=== PATIENT | female | born 1950 | race Caucasian/White ===

== ENCOUNTER 2017-05-03 00:50 | Observation (INO) | payer MEDICARE ==
[~2017-05-03] VITALS: Ht 167.6 cm; Wt 93.2 kg
[~2017-05-03 00:50] MED LIST: AVAPRO150 MG PO; COQ-10100 MG PO; COUMADIN5 MG OR; COUMADIN5 MG PO; LEXAPRO20 MG OR; METOPROLOL SUCC25 MG PO; NAPROSYN500 MG OR; NIACIN TR500 M1 PO; NO MEDS; PERSANTINE25 MG OR; PERSANTINE25 MG PO; PLAVIX75 MG OR; PLAVIX75 MG PO; PRILOSEC20 MG/CAP PO; SEROQUEL XR50 MG PO; SIMVASTATIN20 MG PO; SINGULAIR OR; TOPROL XL25 MG OR; VITAMIN D31000 UNI1 PO; WELLBUTRIN100 MG OR; ZOCOR40 MG OR
[2017-05-03 01:37] LABS: HEMATOCRIT 36.6 % (37.0-47.0); HEMOGLOBIN 11.6 g/dl (12.0-16.0); IMMATURE GRANULOCYTES 0.3 % (0.0-1.0); MEAN CELL VOLUME 93.6 fL CALC (80.0-100.0); MEAN CORPUSCULAR HGB 29.7 pG CALC (26.0-32.0); MEAN CORPUSCULAR HGB CONC 31.7 g/L CALC (32.0-36.0); NEUT# 5.78 thou/uL (2.00-7.15); RED BLOOD COUNT 3.91 mill/uL (4.20-5.60); RED CELL DISTRI WIDTH 14.1 % (11.5-15.5)
[2017-05-03 01:51] LABS: ALBUMIN 3.7 g/dL (3.2-5.0); ALKALINE PHOSPHATASE 94 u/l (38-126); ANION GAP 15 (6-22 (CALC)); BILIRUBIN, TOTAL 0.8 mg/dL (0.0-1.4); BUN 15 mg/dL (8-23); BUN/CREATININE RATIO 14 (12-20 (CALC)); CALCIUM 9.4 mg/dL (8.4-10.2); CARBON DIOXIDE 25 mmol/l (22-30); CHLORIDE 107 mmol/l (95-108); GFR 55 ML/MIN (>=60 (CALC)); GFR FOR AFR.AMER. > 60 ML/MIN (>=60 (CALC)); GLUCOSE 130 mg/dL (82-115); POTASSIUM 4.6 mmol/l (3.5-5.1); SGOT/AST 22 u/l (9-36); SGPT/ALT 29 u/l (11-66); SODIUM 142 mmol/l (137-146)
[2017-05-03 01:54] LABS: INTERNATIONAL NORMALIZED RATIO 2.1 RATIO (0.7-1.3); PROTHROMBIN TIME 24.1 SECONDS (9.0-12.5)
[2017-05-03 02:04] LABS: MYOGLOBIN 24 ng/mL (0 - 62)
[2017-05-03 03:25] VITALS: BP 126/74
[2017-05-03 05:24] LABS: MAGNESIUM 1.9 mg/dL (1.6-2.3)
[2017-05-03 08:25] VITALS: BP 138/69
[2017-05-03 09:55] LABS: URINE BILIRUBIN - DIPSTICK NEGATIVE (NEGATIVE); URINE BLOOD DIPSTICK NEGATIVE (NEGATIVE); URINE CLARITY CLEAR; URINE COLOR YELLOW; URINE GLUCOSE - DIPSTICK NEGATIVE (NEGATIVE); URINE KETONE NEGATIVE (NEGATIVE); URINE LEUK ESTERASE TRACE (NEGATIVE); URINE NITRITE - DIPSTICK NEGATIVE (Negative); URINE PROTEIN - DIPSTICK NEGATIVE (NEG-TRACE); URINE UROBILINOGEN - DIPSTICK 0.2 E.U./dL (0.2)
[2017-05-03 09:58] LABS: BARBITURATES NEGATIVE (NEGATIVE); COCAINE NEGATIVE (NEGATIVE); METHADONE NEGATIVE (NEGATIVE); OXCYCODONE NEGATIVE (NEGATIVE); TETRAHYDROCANNABIONOL POSITIVE (NEGATIVE); TRICYLIC ANTIDEPRESSANTS NEGATIVE (NEGATIVE)
[2017-05-03 11:30] VITALS: BP 126/77
== END 2017-05-03 14:03 | disposition home or self-care (01) ==
LOC: ED 00:50 → ED-I 01:10 → ED 01:10 → ED-I 02:00 → ED 02:51 → MS2 02:52
PROVIDERS: Emergency Medicine; ADMIT Internal Medicine; ATTEND Internal Medicine
DX: R55 Syncope and collapse (principal); I95.9 Hypotension, unspecified; R94.6 Abnormal results of thyroid function studies; D68.59 Other primary thrombophilia; I10 Essential (primary) hypertension; E78.5 Hyperlipidemia, unspecified; F32.9 Major depressive disorder, single episode, unspecified; S80.12XD Contusion of left lower leg, subsequent encounter; W19.XXXD Unspecified fall, subsequent encounter; Z86.718 Personal history of other venous thrombosis and embolism; Z79.01 Long term (current) use of anticoagulants; Z79.02 Long term (current) use of antithrombotics/antiplatelets; R94.31 Abnormal electrocardiogram [ECG] [EKG]

== ENCOUNTER → 2018-09-27 | Outpatient (REF) | payer MEDICARE ==
[2018-09-27 17:07] LABS: INTERNATIONAL NORMALIZED RATIO 2.5 RATIO (0.7-1.3); PROTHROMBIN TIME 26.1 SECONDS (9.0-12.5)
== END | disposition home or self-care (01) ==
LOC: LAB 15:47
PROVIDERS: ATTEND Internal Medicine Cardiovascular Disease
DX: I82.409 Acute embolism and thrombosis of unspecified deep veins of unspecified lower extremity (principal); Z79.01 Long term (current) use of anticoagulants

== ENCOUNTER 2020-07-06 09:39 | Day surgery (SDC) | payer MEDICARE ==
[~2020-07-06] VITALS: Ht 162.6 cm; Wt 81.2 kg
[~2020-07-06 09:39] MED LIST changes: +METOPROLOL SUCC50 MG PO; +ZOCOR20 M1 PO
[2020-07-06 10:58] LABS: INTERNATIONAL NORMALIZED RATIO 1.2 RATIO (0.7-1.3); PROTHROMBIN TIME 11.6 SECONDS (9.0-12.5)
[2020-07-06 12:15] VITALS: BP 154/86
== END 2020-07-06 12:30 | disposition home or self-care (01) ==
LOC: ENDO 09:39 → ORM 14:30 → ENDO 14:30
PROVIDERS: ATTEND Internal Medicine Gastroenterology
PROC: 0D758ZZ Dilation of Esophagus, Via Natural or Artificial Opening Endoscopic (ICD-10-PCS; principal; 2020-07-06)
PROC: 0DB98ZX Excision of Duodenum, Via Natural or Artificial Opening Endoscopic, Diagnostic (ICD-10-PCS; 2020-07-06)
PROC: 0DB78ZX Excision of Stomach, Pylorus, Via Natural or Artificial Opening Endoscopic, Diagnostic (ICD-10-PCS; 2020-07-06)
PROC: 0DBK8ZX Excision of Ascending Colon, Via Natural or Artificial Opening Endoscopic, Diagnostic (ICD-10-PCS; 2020-07-06)
PROC: 0DBL8ZX Excision of Transverse Colon, Via Natural or Artificial Opening Endoscopic, Diagnostic (ICD-10-PCS; 2020-07-06)
PROC: 0DBE8ZX Excision of Large Intestine, Via Natural or Artificial Opening Endoscopic, Diagnostic (ICD-10-PCS; 2020-07-06)
DX: K22.4 Dyskinesia of esophagus (principal); Q39.8 Other congenital malformations of esophagus; K44.9 Diaphragmatic hernia without obstruction or gangrene; K29.70 Gastritis, unspecified, without bleeding; K31.7 Polyp of stomach and duodenum; D12.3 Benign neoplasm of transverse colon; D12.2 Benign neoplasm of ascending colon; K57.30 Diverticulosis of large intestine without perforation or abscess without bleeding; K64.8 Other hemorrhoids; K64.4 Residual hemorrhoidal skin tags; I10 Essential (primary) hypertension; F32.9 Major depressive disorder, single episode, unspecified; Z86.718 Personal history of other venous thrombosis and embolism; Z79.01 Long term (current) use of anticoagulants; Z20.828 Contact with and (suspected) exposure to other viral communicable diseases

== ENCOUNTER 2020-07-18 16:35 | Emergency (ER) | payer MEDICARE ==
[~2020-07-18] VITALS: Ht 162.6 cm; Wt 81.0 kg
[2020-07-18 18:39] LABS: HEMATOCRIT 37.9 % (37.0-47.0); IMMATURE GRANULOCYTES 0.3 % (0.0-5.0); MEAN CORPUSCULAR HGB 22.5 pG CALC (26.0-32.0); NEUT# 5.34 thou/uL (2.00-7.15); RED BLOOD COUNT 4.88 mill/uL (4.20-5.60); RED CELL DISTRI WIDTH 17.1 % (11.5-15.5)
[2020-07-18 18:40] LABS: MEAN CELL VOLUME 77.7 fL CALC (80.0-100.0)
[2020-07-18 19:00] LABS: ANION GAP 13 (6-22 (CALC)); BUN 11 mg/dL (8-23); BUN/CREATININE RATIO 13 (12-20 (CALC)); CARBON DIOXIDE 26 mmol/l (22-30); CHLORIDE 106 mmol/l (95-108); CREATININE 0.8 mg/dL (0.5-1.0); GFR > 60 ML/MIN (>=60 (CALC)); GFR FOR AFR.AMER. > 60 ML/MIN (>=60 (CALC)); POTASSIUM 3.9 mmol/l (3.5-5.1); SODIUM 142 mmol/l (137-146)
[2020-07-18 19:07] LABS: INTERNATIONAL NORMALIZED RATIO 2.1 RATIO (0.7-1.3); PROTHROMBIN TIME 20.1 SECONDS (9.0-12.5)
[2020-07-18 19:55] VITALS: BP 198/89
== END 2020-07-18 20:11 | disposition home or self-care (01) ==
LOC: ED 16:35
PROVIDERS: Student in an Organized Health Care Education/Training Program
DX: M79.605 Pain in left leg (principal); I10 Essential (primary) hypertension; E78.5 Hyperlipidemia, unspecified; Z86.718 Personal history of other venous thrombosis and embolism; Z79.01 Long term (current) use of anticoagulants

== ENCOUNTER 2020-07-19 15:17 | Observation (INO) | payer MEDICARE ==
[~2020-07-19] VITALS: Ht 162.6 cm; Wt 83.0 kg
--- NOTE | 2020-07-19 15:20 | NUR ---
PT AMBULATED TO ROOM FOR BEDSIDE TRIAGE. WHEELCHAIR OFFERED AND DECLINED BY PT.
--- NOTE | 2020-07-19 15:58 | NUR ---
COVID SWAB COLLECTED, ISOLATION PRECAUTIONS INITIATED.
[2020-07-19 16:40] LABS: HEMATOCRIT 35.1 % (37.0-47.0); HEMOGLOBIN 10.2 g/dl (12.0-16.0); IMMATURE GRANULOCYTES 0.2 % (0.0-5.0); MEAN CELL VOLUME 78.5 fL CALC (80.0-100.0); MEAN CORPUSCULAR HGB 22.8 pG CALC (26.0-32.0); MEAN CORPUSCULAR HGB CONC 29.1 g/dL CAL (32.0-36.0); NEUT# 4.23 thou/uL (2.00-7.15); RED BLOOD COUNT 4.47 mill/uL (4.20-5.60); RED CELL DISTRI WIDTH 17.1 % (11.5-15.5)
--- NOTE | 2020-07-19 16:51 | NUR ---
PT RESTING. NO DISTRESS NOTED. NO COMPLAINTS AT THIS TIME. STABLE ON MONITOR. PERSONAL ITEMS AND CALL LIGHT WITHIN REACH.
[2020-07-19 16:58] LABS: ALBUMIN 4.1 g/dL (3.2-5.0); ALKALINE PHOSPHATASE 70 u/l (38-126); ANION GAP 14 (6-22 (CALC)); BILIRUBIN, TOTAL 0.5 mg/dL (0.0-1.4); BUN 10 mg/dL (8-23); BUN/CREATININE RATIO 12 (12-20 (CALC)); CARBON DIOXIDE 23 mmol/l (22-30); CHLORIDE 107 mmol/l (95-108); CREATININE 0.8 mg/dL (0.5-1.0); GFR > 60 ML/MIN (>=60 (CALC)); GFR FOR AFR.AMER. > 60 ML/MIN (>=60 (CALC)); POTASSIUM 3.7 mmol/l (3.5-5.1); SGOT/AST 23 u/l (9-36); SODIUM 141 mmol/l (137-146); TOTAL PROTEIN 6.6 g/dL (6.3-8.2)
[2020-07-19 17:00] LABS: ACT PARTIAL THROMBO TIME 29.7 SECONDS (20.0-32.5); INTERNATIONAL NORMALIZED RATIO 2.5 RATIO (0.7-1.3); PROTHROMBIN TIME 24.3 SECONDS (9.0-12.5)
--- NOTE | 2020-07-19 17:15 | NUR ---
WARM BLANKET PROVIDED FOR PT. NO OTHER NEEDS AT THIS TIME.
--- NOTE | 2020-07-19 17:47 | NUR ---
ATTEMPTED TO CALL REPORT TO [facility]. NURSE NOT AVAILABLE.
--- NOTE | 2020-07-19 18:19 | NUR ---
[facility]
--- NOTE | 2020-07-19 18:31 | NUR ---
PT ARRIVED TO MS2 VIA WHEELCHAIR ACCOMPANIED BY ER NURSE,PT ALERT AND ORIENTED X3, ORIENTED PT TO ROOM AND CALL LIGHT, DISCUSSED POC, PT ASKING ABOUT HEPARIN GTT AND HEATING PAD. ADMISSION ASSESSMENT COMPLETED, WILL DISCUSS PT CONCERNS WITH MD. CALL LIGHT IN REACH,CONTINUE TO MONITOR.
--- NOTE | 2020-07-19 18:31 | NUR ---
PT ARRIVED TO THE FLOOR, VIA WC, ACCOMPANIED BY ED STAFF. PT AMBULATED FROM WC TO BED. GATE STEADY. PT ORIENTED TO ROOM AND CALL GAMBOA SYSTEM. SAFETY PRECAUTIONS IN PLACE. WILL CONTINUE TO MONITOR.
[2020-07-19 19:20] VITALS: BP 157/76
--- NOTE | 2020-07-19 21:45 | NUR ---
PT RESTING IN BED, DISCUSSED KPAD, PT AGREES. DISCUSSED MD PLAN TO CONTINUE WITH LOVENOX AT THIS TIME. PT VERBALIZED UNDERSTANDING. CALL LIGHT IN REACH,CONTINUE TO MONITOR.
--- NOTE | 2020-07-20 | NUR ---
PT RESTING IN BED WITH LLE ELEVATED, PT ON HER PHONE, VOICES NO NEEDS OR COMPLAINTS AT THIS TIME. CALL LIGHT IN REACH,CONTINUE TO MONITOR.
[2020-07-20 03:38] VITALS: BP 120/72
--- NOTE | 2020-07-20 04:00 | NUR ---
PT RESTING IN BED, VITALS OBTAINED, PT VOICES NO NEEDS OR COMPLAINTS AT THIS TIME, CALL LIGHT IN REACH,CONTINUE TO MONITOR.
[2020-07-20 06:48] LABS: HEMATOCRIT 34.3 % (37.0-47.0); MEAN CELL VOLUME 77.4 fL CALC (80.0-100.0); MEAN CORPUSCULAR HGB 22.6 pG CALC (26.0-32.0); MEAN CORPUSCULAR HGB CONC 29.2 g/dL CAL (32.0-36.0); RED BLOOD COUNT 4.43 mill/uL (4.20-5.60)
[2020-07-20 07:23] LABS: ANION GAP 11 (6-22 (CALC)); BUN 7 mg/dL (8-23); BUN/CREATININE RATIO 9 (12-20 (CALC)); CALCULATED LDLCHOLESTEROL 64 mg/dL (62-129 (CALC)); CARBON DIOXIDE 24 mmol/l (22-30); CHLORIDE 109 mmol/l (95-108); CHOLESTEROL HDL RATIO 3.3 (<4.4 (CALC)); CREATININE 0.7 mg/dL (0.5-1.0); GFR > 60 ML/MIN (>=60 (CALC)); GFR FOR AFR.AMER. > 60 ML/MIN (>=60 (CALC)); HDL CHOLESTEROL 38 mg/dL (>=40); MAGNESIUM 1.8 mg/dL (1.6-2.3); POTASSIUM 3.5 mmol/l (3.5-5.1); SODIUM 140 mmol/l (137-146); TOTAL CHOLESTEROL 124 mg/dl (0-199); TOTAL TRIGLYCERIDES 109 mg/dl (30-149); VLDL CHOLESTROL 22 mg/dl (0-48 (CALC))
[2020-07-20 08:12] VITALS: BP 160/85
--- NOTE | 2020-07-20 08:12 | NUR ---
PT LAYING IN BED. A&O X3. NO DISTRESS NOTED. LLE SLIGHTLY ELEVATED WITH K PAD IN PLACE. PT REPORTS TO BE FEELING BETTER THIS MORNING. PT REQUESTED TO HAVE MORNING MEDICATIONS MOVED TO 1500, RAYMUNDO NOTIFIED. NO OTHER NEEDS AT THIS TIME. ASSESSMENT COMPLETED. DISCUSSED POC. CALL LIGHT IN REACH. CONTINUE TO MONITOR.
--- NOTE | 2020-07-20 08:33 | NUR ---
DR SANCHEZ AND Chela DORSEY APPAREL MACHINERY INSTRUCTOR AT BEDSIDE DISCUSSING POC
--- NOTE | 2020-07-20 11:56 | NUR ---
PT SITTING IN BED EATING LUNCH. NO NEEDS AT THIS TIME. PT UPDATED ON D/C PLANS. PT AGREEABLE. CALL LIGHT IN REACH. CONTINUE TO MONITOR.
--- NOTE | 2020-07-20 13:37 | NUR ---
PT note Patient is screened for PT intervention and no needs are identified at this time
[2020-07-20] MEDS ORDERED: ENOXAPARIN80 MG/0.1 SC (14:11)
[2020-07-20 14:21] LABS: INTERNATIONAL NORMALIZED RATIO 2.9 RATIO (0.7-1.3); PROTHROMBIN TIME 27.8 SECONDS (9.0-12.5)
--- NOTE | 2020-07-20 14:45 | NUR ---
Brian SEXTON AT BEDSIDE DISCUSSING MEDICATION PLAN ALONG WITH PROVIDING EDUCATION ON COUMADIN THERAPY. PT UPDATED ON D/C PLAN. IV VENOFER TO BE INFUSED, 4 HR SITE. PT AGREEABLE TO PLAN. CALL LIGHT IN REACH. CONTINUE TO MONITOR.
[2020-07-20 15:40] VITALS: BP 134/73
--- NOTE | 2020-07-20 19:30 | NUR ---
1929-RECEIVED REPORT FROM SEVERIANO MICHEL. PT IS BEING DISCHARGED SOON HER IRON INFUSION IS COMPLETE. PT ASSESSMENT UNREMARKABLE. NO S/S OF DISTRESS. PT DENIES PAIN AND IS READY TO GO HOME. BED LOW AND LOCKED. CALL LIGHT AND PHONE WITHIN REACH. PT STABLE. WILL CONTINUE TO MONITOR.
[2020-07-20 20:00] VITALS: BP 145/81
--- NOTE | 2020-07-20 20:45 | NUR ---
2044-PT DISCHARGE COMPLETE. IV ACCESS REMOVED. TIP INTACT, PRESSURE APPLIED TO REMOVAL SITE FOR 5 MINUTES WITH PRESSURE APPLIED, PT TOLERATED WELL. PRESSURE DRESSING APPLIED AND INSTRUCTED PT TO KEEP DRESSING IN PLACE FOR 2 HOURS. PT VERBALIZED UNDERSTANDING. DISCHARGE INSTRUCTIONS PROVIDED AND PATIENT VERBALIZED UNDERSTANDING. PT ESCORTED BY WHEELCHAIR TO HER VEHICLE PARKED OUTSIDE ER AND WAS ASSISTED SAFELY IN THE VEHICLE. PT LEFT MED-SURG UNIT AT 2044. PT ASKED FOR ANY LABS AND DOCUMENTATION TO BE FAXED TO HER PCP DR. WRIGHT AT .
== END 2020-07-20 20:45 | disposition home or self-care (01) ==
LOC: ED 15:17 → MS2 16:02
PROVIDERS: Nurse Practitioner; ADMIT Internal Medicine; ATTEND Internal Medicine
DX: I82.412 Acute embolism and thrombosis of left femoral vein (principal); I82.432 Acute embolism and thrombosis of left popliteal vein; I10 Essential (primary) hypertension; E78.5 Hyperlipidemia, unspecified; Z86.718 Personal history of other venous thrombosis and embolism; Z79.01 Long term (current) use of anticoagulants; Z20.828 Contact with and (suspected) exposure to other viral communicable diseases
CPT/HCPCS: J1650; J1756

== ENCOUNTER 2021-01-24 16:49 | Inpatient (IN) | payer MEDICARE ==
[~2021-01-24] VITALS: Ht 165.1 cm; Wt 85.0 kg
[~2021-01-24 16:49] MED LIST changes: +ENOXAPARIN80 MG/0.1 SC
--- NOTE | 2021-01-24 16:50 | NUR ---
PATIENT AMBULATED TO ROOM WITH STEADY GAIT AND PHYSICIAN NOTIFIED OF PATIENT STATUS
--- NOTE | 2021-01-24 17:30 | NUR ---
PLAN OF CARE DISCUSSED WITH PT AND DENIES ANY FURTHER QUESTIONS
[2021-01-24 17:34] LABS: IMMATURE GRANULOCYTES 0.3 % (0.0-5.0); MEAN CORPUSCULAR HGB 29.1 pG CALC (26.0-32.0); MEAN CORPUSCULAR HGB CONC 32.3 g/dL CAL (32.0-36.0); NEUT# 5.82 thou/uL (2.00-7.15); RED BLOOD COUNT 5.15 mill/uL (4.20-5.60); RED CELL DISTRI WIDTH 12.8 % (11.5-15.5)
[2021-01-24 17:40] LABS: HEMATOCRIT 46.5 % (37.0-47.0); MEAN CELL VOLUME 90.3 fL CALC (80.0-100.0)
[2021-01-24 17:47] LABS: ALBUMIN 4.4 g/dL (3.2-5.0); ALKALINE PHOSPHATASE 99 u/l (38-126); AMYLASE 90 u/l (30-110); BUN 16 mg/dL (8-23); BUN/CREATININE RATIO 17 (12-20 (CALC)); CHLORIDE 102 mmol/l (95-108); CREATININE 0.9 mg/dL (0.5-1.0); GFR > 60 ML/MIN (>=60 (CALC)); GFR FOR AFR.AMER. > 60 ML/MIN (>=60 (CALC)); LIPASE 110 u/l (23-300); SGOT/AST 28 u/l (9-36); SODIUM 136 mmol/l (137-146); TOTAL PROTEIN 7.6 g/dL (6.3-8.2)
[2021-01-24 17:49] LABS: ANION GAP 15 (6-22 (CALC)); BILIRUBIN, TOTAL 1.1 mg/dL (0.0-1.4); CARBON DIOXIDE 23 mmol/l (22-30); POTASSIUM 3.7 mmol/l (3.5-5.1)
--- NOTE | 2021-01-24 18:14 | NUR ---
PT RETURNED FROM RADIOLOGY, DENIES ANY NEEDS AT THIS TIME
--- NOTE | 2021-01-24 18:33 | NUR ---
GAVE REPORT TO JOHN
[2021-01-24 18:48] LABS: INTERNATIONAL NORMALIZED RATIO 2.6 RATIO (0.7-1.3); PROTHROMBIN TIME 26.2 SECONDS (9.0-12.5)
[2021-01-24 18:56] LABS: URINE BILIRUBIN - DIPSTICK NEGATIVE (NEGATIVE); URINE BLOOD DIPSTICK LARGE (NEGATIVE); URINE COLOR YELLOW; URINE GLUCOSE - DIPSTICK NEGATIVE (NEGATIVE); URINE KETONE NEGATIVE (NEGATIVE); URINE PH 6.5 (4.5-8.0); URINE PROTEIN - DIPSTICK NEGATIVE (NEG-TRACE); URINE UROBILINOGEN - DIPSTICK 0.2 E.U./dL (0.2)
[2021-01-24 18:57] LABS: URINE LEUK ESTERASE SMALL (NEGATIVE); URINE NITRITE - DIPSTICK NEGATIVE (Negative)
[2021-01-24 19:05] LABS: URINE BACTERIA MANY hpf; URINE SQUAMOUS EPITHELIAL CELL FEW EPI/hpf (0-FEW); URINE WBC 20-50 WBC/hpf (0-5)
--- NOTE | 2021-01-24 20:00 | NUR ---
RESTING QUIETLY AWAITING DISPO.
--- NOTE | 2021-01-24 21:36 | NUR ---
ADMISSION ASSESSMENT COMPLETED IN ED. PT TRANSPORT VIA WHEELCHAIR. ALERT AND ORIENTED X4. NO APPARENT DISTRESS NOTED. RESPIRATIONS EVEN AND UNLABORED. PT AMBULATORY FROM WHEELCHAIR TO BED. BUSINESS MACHINES TEACHER IN PLACE. IV SITE APPEARS HEALTHY. IVF INFUSING WITHOUT DIFFICULTY. DISCUSSED POC AND NPO AFTER MIDNIGHT. PT VERBALIZED UNDERSTANDING. ORIENTED TO ROOM AND CALL LIGHT SYSTEM. PT DENIES ANY CURRENT WANTS OR NEEDS. CALL LIGHT WITHIN REACH. WILL CONTINUE TO MONITOR.
--- NOTE | 2021-01-24 21:36 | NUR ---
Admission Note Report Given to: THUY BHANDARI Transported by: X Wheelchair Stretcher Transported with: X Nurse Transporter X Patent IV O2 X Watershed Coordinator Location: ICU X MS2
[2021-01-24 21:37] VITALS: BP 163/86
--- NOTE | 2021-01-24 21:57 | NUR ---
PT REQUESTING TORADOL FOR PAIN PT PREFERS NOT TO TAKE DILAUDID. RADIO SCRIPT WRITER PHYSICIAN NOTIFIED. ORDERS RECEIVED FOR TORADOL 30MG Q6H PRN. WILL MEDICATE ONCE PROFILED BY PHARMACY.
--- NOTE | 2021-01-24 22:29 | NUR ---
PER PHARMACY RECOMMENDATION PT OVER THE AGE OF 63 THE RECOMMENDED DOSE IS TORADOL 15MG INSTEAD OF 30MG. ORDER PACKER OR PACKAGER PHYSICIAN NOTIFIED, NEW ORDERS RECEIVED.
[2021-01-24 23:47] VITALS: BP 119/60
[2021-01-25] VITALS (11 sets, daily range): BP systolic 104–142; BP diastolic 53–78
--- NOTE | 2021-01-25 00:34 | NUR ---
PT RESTING IN BED WITH EYES CLOSED. NO APPARENT DISTRESS NOTED. RESPIRATIONS EVEN AND UNLABORED. BULK LOADER IN PLACE. IVF INFUSING WITHOUT DIFFICULTY. CALL LIGHT WITHIN REACH. WILL CONTINUE TO MONITOR.
--- NOTE | 2021-01-25 03:43 | NUR ---
PT REQUEST TYLENOL FOR HEADACHE 03/12. MEDICATED AT THIS TIME WITH SMALL SIP OF WATER. PT REFUSED DILAUDID. NO OTHER CURRENT WANTS OR NEEDS. NO APPARENT DISTRESS NOTED. CALL LIGHT WITHIN REACH. WILL CONTINUE TO MONITOR.
--- NOTE | 2021-01-25 07:00 | NUR ---
RECIEVED REPORT MANUELITO HUANG LPN
[2021-01-25 07:17] LABS: MEAN CELL VOLUME 90.2 fL CALC (80.0-100.0); MEAN CORPUSCULAR HGB 29.4 pG CALC (26.0-32.0); MEAN CORPUSCULAR HGB CONC 32.6 g/dL CAL (32.0-36.0); RED BLOOD COUNT 4.39 mill/uL (4.20-5.60); RED CELL DISTRI WIDTH 13.1 % (11.5-15.5)
[2021-01-25 07:20] LABS: HEMATOCRIT 39.6 % (37.0-47.0); HEMOGLOBIN 12.9 g/dl (12.0-16.0)
--- NOTE | 2021-01-25 07:45 | NUR ---
DR HAIR AT BEDSIDE
[2021-01-25 07:46] LABS: CREATININE 1.1 mg/dL (0.5-1.0); MAGNESIUM 1.7 mg/dL (1.6-2.3)
[2021-01-25 07:47] LABS: POTASSIUM 4.7 mmol/l (3.5-5.1)
--- NOTE | 2021-01-25 07:49 | NUR ---
PT RESTING IN SEMI FOWLERS POSITION. PT IS A/O X3. ASSESSMWNT AND VITALS COMPLETED. BP 104/60, HR 62, O2 96% ON ROOM AIR. RESPIRATIONS ARE EVEN AND UNLABORED WITH NO DISTRESS NOTED. LUNG SOUNDS CLEAR. HEART RHYTHM NORMAL WITH TELE IN PLACE. BOWEL SOUNDS ACTIVE. RADIAL AND PEDAL PULSES STRONG. #20G LAC INFUSING WITH IVF PER ORDER, SITE REMAINS HEALTHY AND PATENT. PT STATES P[AIN IN NOW 08/12 GENERALIZED. SKIN INTACT. 1+ EDEMA NOTED. OBTAINED CONSENT AT THIS TIME. PT VOICED NO QUESTIONS. NPO STATUS REMAISN AT THIS TIME. STENT PLACEMENT SCHEDULED AT 1100 PER OR. PT INFORMED. ALL SAFETY PRECAUTIONS ARE IN PLACE WITH CALL LIGHT IN REACH. WILL CONTINUE TO MONITOR.
--- NOTE | 2021-01-25 09:30 | NUR ---
DR NAGY CONTACT.PER DR NAGY, GIVEN BLOOD THINNERS. MEDICATION ADMINISTERED. PT TOLERATED WELL.
--- NOTE | 2021-01-25 10:03 | NUR ---
APPROVAL FOR SON TO COME TO FLOOR TO VISIT AND STAY DURING SURGERY PER NICOLASA LANCASTER.SON AT BEDSIDE
--- NOTE | 2021-01-25 11:21 | NUR ---
PT TRANSPORTED TO OR VIA STRETCHER IN STABLE CONDITION ACCOMPAINED BY OR STAFF. SON TO STAY IN ROOM.
--- NOTE | 2021-01-25 14:06 | NUR ---
PT ARRIVED BACK TO [facility] ROOM 269 VIA STRETCHER IN [facility]. PT IS A/O X3 AND VITALS COMPLETED.BP 132/61, HR 62, O2 96% ON ROOM AIR. RESPIRATIONS ARE EVEN AND UNLABORED.TELE IN PLACE. #20G LAC INFUSING WITH IVF PER ORDER, SITE REMAINS HEALTHY AND PATENT. PT AMBULATED TO BATHROOM WITH X1 ASSIST. 200 BLOODY URINE NOTED. DOT ETCHER APPRENTICE INFORMED BY OR NURSE THAT STENT WOULD HAVE TO BE REMOVED BACK IN OR IN THE NEXT 2 WEEKS. PT NOTIFIED. PT VERBALIZED UNDERSTANDING. PT REQUEST FOR MASH POTATOES AND TEA, DIETARY CALLED.PT COMPLAINS OF 4/10 HEAD AND PELVIC PAIN, TORADOL ADMINISTERED. PT TOLERATED WELL. PT DENIES OF ANY OTHER NEEDS.ALL SAFETY PRECAUTIONS ARE IN PLACE WITH CALL LIGHT IN REACH.WILL CONTINUE TO MONITOR.
--- NOTE | 2021-01-25 16:35 | NUR ---
PT RESTING IN SEMI FOWLERS POSITION WATCHING TV.REPSIRATIONS ARE EVEN AND UNLABORED WITH NO DISTRESS NOTED. #20G LAC INFUSING WITH IVF PER ORDER, SITE REMAINS HEALTHY AND PATENT.TELE MONITORING IN PLACE. PT STATES PAIN IN NOW 08/12 AFTER TORADOL. PT DENIES OF ANY NEEDS AT THIS TIME.ALL SAFETY PREACUTIONS ARE IN PLACE WITH CALL LIGHT IN REACH.WILL CONTINUE TO MONITOR.
--- NOTE | 2021-01-25 18:18 | NUR ---
DARK RED/BROWNISH URINE NOTED.DR NAGY NOTIFIED. DRIVER SERVICE TECHNICIAN TOLD IT WAS TO BE EXPECTED.
--- NOTE | 2021-01-25 20:45 | NUR ---
PT RESTING IN BED AT TOP OF SHIFT, C/O HEADACHE. PT REPORTS THAT TORADOL GIVES HER A HORRIBLE MIGRAINE, ADMINSTERED DILAUDID IV FOR PAIN. FOLLOWING THE DILAUDID PT REPORTED SHE WAS FEELING NAUSEOUS, ADMINSTERED ZOFRAN PER ORDER. PT STATED, "I JUST DON'T FEEL WELL". VS WNL. NO S/S OF DISTRESS NOTED. BREATHING EVEN AND UNLABORED. SAFETY PRECAUTIONS IN PLACE, BED IN LOWEST POSITION, CALL LIGHT WITHIN REACH. WILL MONITOR
[2021-01-26] VITALS (10 sets, daily range): BP systolic 146–209; BP diastolic 69–102
--- NOTE | 2021-01-26 00:30 | NUR ---
PT RESTING QUIETLY IN BED WITH EYES CLOSED, NO COMPLAINTS VOICED AT THIS TIME. PT REPORTS PAIN OF 1 FOLLOWING DILAUDID ADMINSTRATION. BREATHING EVEN AND UNLABORED. NO S/S OF DISTRESS NOTED. SAFETY PRECAUTIONS IN PLACE, WILL MONITOR
--- NOTE | 2021-01-26 04:49 | NUR ---
PT RESTING COMFORTABLY IN BED WITH HER EYES CLOSED AT THIS TIME. MEDICATED AGAIN FOR PAIN AROUND 0356, MEDICATION EFFECTIVE. NO COMPLAINTS VOICED. BREATHING IS EVEN AND UNLABORED. NO S/S OF DISTRESS NOTED. SAFETY PRECAUTIONS REMAIN IN PLACE, BED IN LOWEST POSITION AND CALL LIGHT WITHIN REACH. WILL MONITOR
[2021-01-26 05:10] LABS: HEMATOCRIT 38.6 % (37.0-47.0); HEMOGLOBIN 12.2 g/dl (12.0-16.0); MEAN CORPUSCULAR HGB 29.4 pG CALC (26.0-32.0); MEAN CORPUSCULAR HGB CONC 31.6 g/dL CAL (32.0-36.0); RED BLOOD COUNT 4.15 mill/uL (4.20-5.60); RED CELL DISTRI WIDTH 13.4 % (11.5-15.5)
[2021-01-26 05:24] LABS: ANION GAP 10 (6-22 (CALC)); BUN 14 mg/dL (8-23); BUN/CREATININE RATIO 15 (12-20 (CALC)); CARBON DIOXIDE 22 mmol/l (22-30); CHLORIDE 110 mmol/l (95-108); CREATININE 0.9 mg/dL (0.5-1.0); GFR > 60 ML/MIN (>=60 (CALC)); GFR FOR AFR.AMER. > 60 ML/MIN (>=60 (CALC)); SODIUM 139 mmol/l (137-146)
[2021-01-26 05:31] LABS: INTERNATIONAL NORMALIZED RATIO 4.3 RATIO (0.7-1.3); PROTHROMBIN TIME 42.7 SECONDS (9.0-12.5)
--- NOTE | 2021-01-26 06:15 | NUR ---
REPORT RECEIVED FROM SEVERIANO PEREZ
--- NOTE | 2021-01-26 07:00 | NUR ---
RECIEVED REPORT FROM THUY MAYO.
--- NOTE | 2021-01-26 07:00 | NUR ---
RECIEVED REPORT FROM SEVERIANO MAYO
--- NOTE | 2021-01-26 07:22 | NUR ---
PT RESTING IN SEMI FOWLERS POSITION. PT IS A/OX3.ASSESSMENT AND VIATSL COMPLETED.BP 156/77, HR 70, O2 94% ON ROOM AIR. REPSIRATIONS ARE EVEN AND UNLABORED WITH NO DISTRESS NOTED.LUNG OSUNDS ARE CLEAR. HEART RHYTHM NORMAL WITH TELE IN PLACE.BOWEL SOUNDS ARE ACTIVE.LAST BM 01/24/21. RADIAL AND PEDAL PULSES STRONG. #20G LAC INFUSING WITH IVF PER ORDER, SITE REMAINS HEALTHY AND PATENT. SCDS APPLIED. SKIN INTACT.PT COMPLAINS OF 4/10 PELVIC PAIN. PT MEDICATED PER EMAR. PT REPORTS BLOODY URINE. PT INFORMED THAT IS NORMAL. PT DENIES OF ANY OTHER NEEDS ATTHIS TIME.ALL SAFETY PRECAUTIONS ARE IN PLACE WITH CALL LIGHT IN REACH.WILL CONTINUE TO MONITOR
--- NOTE | 2021-01-26 10:00 | NUR ---
PER UMER TAVERAS. ADMINISTERED PLAVIX AND PERSITINE. COUMADIN TO BE REDUCED. PT AGREES TO MEDICATION ADMINISTRATION. PT REQUEST REPEAT INR AND PT. UMER MCKINLEY NOTIFIED.
--- NOTE | 2021-01-26 11:30 | NUR ---
DR TAVARES AT BEDSIDE
--- NOTE | 2021-01-26 11:52 | NUR ---
PT RESTING IN SEMI FOWLERS POSITION EATING LUNCH. RESPIRATIONS ARE EVEN AND UNLABORED WITH NO DISTRESS NOTED. IVF INSUFING WITH EASE, SITE REMAINS HEALTHY AND PATENT. TELE MONITORING IN PLACE. PT DENIES OF ANY NEEDS AT THIS TIME. ALL SAFETY PRECAUTIONS ARE IN PLACE WITH CALL LIGHT IN REACH. WILL CONTINUE TO MONITOR.
--- NOTE | 2021-01-26 15:14 | NUR ---
PT STATES PAIN MEDICATIONS HAD HELPED. MD NOTIFIED OF INCREASE PAIN. NO NEW ORDERS OBTAINED.
--- NOTE | 2021-01-26 17:06 | NUR ---
REASSESSMENT OF BP REUSLTING IN 188/84, HR 63, O2 96% ROOM AIR. RESPIRATIONS ARE EVEN AND UNLABORED. #20G LAC INFUSING WITH IVF PER ORDER. PT DENIES OF ANY NEEDS AT THIS TIME. MD NOTIFIED OF BP. NEW ORDERS TO BE OBTAINED.ALL SAFETY PECAUTIONS ARE IN PLACE. WILL CONTINUE TO MONITOR.
--- NOTE | 2021-01-26 17:47 | NUR ---
REASSESSMENT OF BP 209/107, HR 63. PT STATES SHE HAS 10/10 PAIN. DILAUDID ADMINISTERED. RESPIRATIONS REMAINS EVEN AND UNLABOED. MD ALREADY AWARE OF INCERASED PAIN. PT DENIES OF ANY NEEDS AT THIS TIME. ALL SAFETY PRECAUTIONS ARE IN PLACE. WILL CONTINUE TO MONITOR.
--- NOTE | 2021-01-26 19:00 | NUR ---
REPORT RECEIVED FROM Ricky CABRAL LPN, CARE OF PT ASSUMED AT THIS TIME.
--- NOTE | 2021-01-26 20:00 | NUR ---
PT RESTING IN BED, STATES "IM TRYING NOT TO MOVE TO MUCH". PT IS A/OX2, PLEASANT AND COOPERATIVE. PT SITS UP IN BED. PHYSICAL ASSESMENT COMPLETE. PT REQUESTS ASSISTANCE UP TO BATHROOM. PT ASSISTED FROM BED TO BATHROOM AND BACK TO BED. PT REPORTS SHE IS COLD. THERMOSTAT TURNED UP AND WARM BLANKET PROVIDED. URINE EMPTIED FROM SPECIMEN COLLECTION CONTAINER IS EVY WITH RUST COLORED SEDIMENT. SCHEDULED MEDICATIONS ADMINISTERED AND PRN HYDRALAZINE ADMINISTERED FOR NIBP OF 174/94mmHg WITH A RYTHM AND RATE OF NSR 60S. PT OFFERED TORADOL FOR COMFORT AND PT DECLINES. PT SUSPECTS TORADOL CAUSED A HEADACHE WHEN LAST GIVEN. PT DENIES FURTHER NEEDS AT THIS TIME. PLAN OF CARE REVIEWED. PT VERBALIZES UNDERSTANDING. CALL GAMBOA WITHIN REACH. AGREES TO CALL PRN.
--- NOTE | 2021-01-26 20:50 | NUR ---
PT REPORTS CHEST DISCOMFORT 11/10. NIBP 177/90mmHg. NSR 60'S ON MONITOR. SKIN DRY AND WARM. NO INCREASED WORK OF BREATHING. NO PALLOR. PT ADVISED EKG AND BLOOD WORK WOULD BE COLLECTED SHORTY.
--- NOTE | 2021-01-26 21:09 | NUR ---
ORDERS RECEIVED FOR EKG AND TROPONIN LEVEL STAT.
--- NOTE | 2021-01-26 21:13 | NUR ---
Ricky VARGHESE HAT CONDITIONER AND Feliciano VASQUEZ CLERICAL SECRETARY TO ROOM TO COLLECT EKG AND TROPONIN. PT REQUESTS ASSISTANCE TO BATHROOM PRIOR TO EKG AND LAB COLLECTION. PT ASSISTED TO BATHROOM AND BACK TO BED.
--- NOTE | 2021-01-26 21:25 | NUR ---
EKG COMPLETE AND TROPONIN COLLECTED. EKG NSR 60S AND UNCHANGED WHEN COMPARED TO BASELINE EKG.
--- NOTE | 2021-01-26 21:33 | NUR ---
ASSESMENT FINDINGS REPORTED TO DR. TAVARES, PRN XANAX ORDER RECEIVED. NO FURTHER ORDERS AT THIS TIME.
--- NOTE | 2021-01-26 21:45 | NUR ---
PRN DILAUDID AND ZOFRAN ADMINISTERED FOR PAIN AND NAUSEA. PT IS UNCLEAR ABOUT PAINED AREA. WHEN ASKED STATES "I DON'T EVEM KNOW ANYMORE".
--- NOTE | 2021-01-26 22:10 | NUR ---
TROPONIN LEVEL 0.023ng/ml. NO FURTHER COMPLAINTS OF CHEST DISCOMFORT. PT REPORTS NAUSEA, NO EMESIS. DR. TAVARES MADE AWARE. NO NEW ORDERS.
--- NOTE | 2021-01-26 22:15 | NUR ---
PAIN RESOLVED, NAUSEA REMAINS. DISCUSSED WITH PT DR. RAMIREZ CONCERN TO PRESCRIBE FURTHER ANTI-EMETIC DUE TO COMPAZINE ALLERGY AND FURTHER ANTI-HYPERTENSIVE DUE TO APPARENT REACTION TO HYDRALAZINE (NAUSEA). PLAN IS TO FURTHER MONITOR NIBP AND CON'T TO ADMINISTER PRN DILAUDID AND ZOFRAN FOR PAIN AND NAUSEA.
--- NOTE | 2021-01-26 23:20 | NUR ---
PT REPORTS SHE FEELS WARM AND REQUEST THERMOSTAT DECREASED, THERMOSTAT DECREASED REQUESTED. PT AFEBRILE 97.6. SKIN WARM AND DRY.
[2021-01-27 00:09] VITALS: BP 180/83
--- NOTE | 2021-01-27 00:15 | NUR ---
PT REQUESTING ADDITIONAL DOSE OF ZOFRAN. ADVISED PT ZOFRAN DUE AT 0045. PT REQUESTS THERMOSTAT BE TURNED DOWN FURTHER. STATES "IM STILL HOT" THERMOSTAT TURNED DOWN REQUESTED.
--- NOTE | 2021-01-27 01:00 | NUR ---
PT APPEARS TO BE SLEEPING COMFORTABLY. LAYING ON HER SIDE, EYES CLOSED, GENTLY SNORING, RESPIRATIONS REGULAR AND UNLABORED. NO APPARENT DISTRESS. CALL GAMBOA REMAINS WITHIN REACH.
--- NOTE | 2021-01-27 01:45 | NUR ---
PT ASSISTED OOB TO BATHROOM AND BACK TO BED BY Dulce SINGH CNA.
--- NOTE | 2021-01-27 02:00 | NUR ---
PRN DILAUDID AND ZOFRAN ADMINISTERED FOR PAIN AND PROPHYLACTICALLY FOR NAUSEA. PT REPORTS NAUSEA HAS SUBSIDED AT THIS TIME. SEE E-MAR.
--- NOTE | 2021-01-27 03:43 | NUR ---
PT APPEARS TO BE SLEEPING COMFORTABLY. LAYING ON HER SIDE, EYES CLOSED, GENTLY SNORING, RESPIRATIONS REGULAR AND UNLABORED. NO APPARENT DISTRESS. CALL GAMBOA REMAINS WITHIN REACH.
[2021-01-27 04:00] VITALS: BP 134/66
--- NOTE | 2021-01-27 04:35 | NUR ---
Feliciano VASQUEZ, HOSPITALITY SERVICES MANAGER IN ROOM COLLECTING AM LAB WORK.
[2021-01-27 05:53] LABS: ANION GAP 13 (6-22 (CALC)); BUN 10 mg/dL (8-23); BUN/CREATININE RATIO 13 (12-20 (CALC)); CARBON DIOXIDE 22 mmol/l (22-30); CHLORIDE 108 mmol/l (95-108); CREATININE 0.8 mg/dL (0.5-1.0); GFR > 60 ML/MIN (>=60 (CALC)); GFR FOR AFR.AMER. > 60 ML/MIN (>=60 (CALC)); POTASSIUM 4.3 mmol/l (3.5-5.1); SODIUM 138 mmol/l (137-146)
[2021-01-27 05:54] LABS: HEMATOCRIT 41.4 % (37.0-47.0); MEAN CORPUSCULAR HGB 29.2 pG CALC (26.0-32.0); MEAN CORPUSCULAR HGB CONC 31.4 g/dL CAL (32.0-36.0); RED BLOOD COUNT 4.45 mill/uL (4.20-5.60); RED CELL DISTRI WIDTH 13.3 % (11.5-15.5)
[2021-01-27 05:58] LABS: INTERNATIONAL NORMALIZED RATIO 3.1 RATIO (0.7-1.3); PROTHROMBIN TIME 30.8 SECONDS (9.0-12.5)
--- NOTE | 2021-01-27 07:10 | NUR ---
REPORT RECEIVED FROM SEVERIANO RICO
[2021-01-27 09:10] VITALS: BP 134/71
--- NOTE | 2021-01-27 09:10 | NUR ---
PT RESTING IN SEMI FOWLERS POSITION,A&O X3;VS OBTAINED AND ASSESSMENT COMPLETED;PT DENIES ANY CURRENT PAIN OR DISCOMFORTS,PAIN SCALE AND REPORTING EDUCATED;RESPIRATIONS EVEN AND UNLABORED ON RA,CLEAR LUNG SOUNDS;ABDOMEN SOFT ON PALPATION AND ACTIVE IN ALL 4 QUADRANTS;STRONG PEDAL PULSES;SKIN INTACT;TELE MONITORING IN PLACE;#20G TO LAC INFUSING NS @ 125ML/HR,SITE APPEARS HEALTHY;PT DENIES ANY ADDITIONAL NEEDS AND IS ENCOURAGED TO CALL FOR ASSISTANCE IF NEEDED;FALL PRECAUTIONS IN PLACE WITH BED IN THE LOWEST POSITION AND CALL LIGHT IN REACH;WILL CONTINUE TO MONITOR
--- NOTE | 2021-01-27 10:23 | NUR ---
AT BEDSIDE DISCUSSING POC WITH PT.
[2021-01-27 10:29] VITALS: BP 155/70
--- NOTE | 2021-01-27 11:35 | NUR ---
PT RESTING IN SEMI FOWLERS POSITION;RESPIRATIONS EVEN AND UNLABORED ON RA;PT DENIES ANY CURRENT PAIN OR DISCOMFORTS;TELE MONITORING IN PLACE;IV SITE PATENT INFUSING NS @ 10ML/HR,SITE APPEARS HEALTHY;PT ENCOURAGED TO CALL FOR ASSISTANCE IF NEEDED;CALL LIGHT IN REACH;WILL CONTINUE TO MONITOR
[2021-01-27 14:30] VITALS: BP 153/79
--- NOTE | 2021-01-27 15:25 | NUR ---
PT RESTING IN SEMI FOWLERS POSITION;RESPIRATIONS EVEN AND UNLABORED ON RA;PT REPORTS PAIN AND REQUEST PAIN MEDICATION;PT REPORTS THAT SHE DOES NOT WANT PRN TYLENOL,TORADOL, OR DILAUDID WHICH IS AVAILABLE;CALL MADE TO AND NEW ORDERS RECEIVED;TELE MONITORING IN PLACE;IV SITE PATENT INFUSING WITH EASE TO LAC;APPLE JUICE PROVIDED PER REQUEST;PT DENIES ANY ADDITIONAL NEEDS;ENCOURAGED TO CALL FOR ASSISTANCE IF NEEDED;FALL PRECAUTIONS IN PLACE WITH CALL LIGHT IN REACH;WILL CONTINUE TO MONITOR
--- NOTE | 2021-01-27 16:05 | NUR ---
PT MEDICATED WITH PRN ULTRAM 50MG PO FOR RIGHT FLANK PAIN RATING 5/10 ON THE PAIN SCALE;PT DENIES ANY ADDITIONAL NEEDS;CALL LIGHT IN REACH;WILL CONTINUE TO MONITOR FOR EFFECTIVENESS
--- NOTE | 2021-01-27 19:05 | NUR ---
REPORT FROM MARIA ESTHER DALEY. ASSUMED PT CARE.
--- NOTE | 2021-01-27 19:10 | NUR ---
PT NOTED SITTING UP IN BED WATCHING TV. NO APPARENT DISTRESS NOTED. PT ALERT AND ORIENTED X3. RESPIRATIONS EVEN AND UNLABORED. RING MAKER IN PLACE. IV SITE APPEARS HEALTHY WITH IVF INFUSING. PT DENIES ANY CURRENT WANTS OR NEEDS. PT DENIES ANY PAIN OR DISCOMFORT. CALL LIGHT WITHIN REACH. WILL CONTINUE TO MONITOR.
[2021-01-27 19:14] VITALS: BP 165/78
--- NOTE | 2021-01-27 19:31 | NUR ---
SIDNEY العلي TO ADMINISTER PRN IV APRESOLINE FOR ELEVATED BP OF 165/78. DISCUSSED WITH PT AT THIS TIME, PT VERBALIZED UNDERSTANDING.
--- NOTE | 2021-01-27 20:20 | NUR ---
REASSESSMENT OF BP, NOW 151/79. PT HAS C/O HEADACHE AND NAUSEA. WILL MEDICATE PER ORDERS AND CONTINUE TO MONITOR.
--- NOTE | 2021-01-27 20:37 | NUR ---
PT MEDICATED WITH ZOFRAN FOR NAUSEA, DISCUSSED PAIN MEDICATION OPTIONS AVAILABLE PT REQUEST DILAUDID. MEDICATED ORDERED WITH PRN DILUADID AT THIS TIME. ASSESSMENT COMPLETE. PT REQUEST TO TAKE SCHEDULED MEDICATIONS AT LATER TIME. CALL LIGHT WITHIN REACH. NO OTHER CURRENT WANTS OR NEEDS VOICED. WILL CONTINUE TO MONITOR.
--- NOTE | 2021-01-27 22:04 | NUR ---
MEDICATED ORDERED WITH SCHEDULED MEDICATIONS. DISCREPANCY NOTED ON SCHEDULED SEROQUEL, PHARMACY NOTIFIED OF ERROR ON OCT. WILL MEDICATE WHEN RESOLVED. PT C/O PELVIC CRAMPING, REFUSED ULTRAM AND TYLENOL. INFORM PT OF NEXT AVAILABLE DOSE OF DILAUDID AVAILABLE, PT VERBALIZED UNDERSTANDING. HOT PACK PROVIDED AT THIS TIME. ENCOURAGED REPOSITIONING IN BED. CALL LIGHT WITHIN REACH. WILL CONTINUE TO MONITOR.
[2021-01-28 00:13] VITALS: BP 156/83
--- NOTE | 2021-01-28 00:40 | NUR ---
PT C/O LOWER ABD PAIN 11/10. REQUESTING DILAUDID AT THIS TIME. OFFERED ULTRAM PT REFUSED. MEDICATED WITH PRN DILUADID AT THIS TIME. ASSISTED PT TO BATHROOM PT AMBULATED WITH STEADY GAIT, NO APPARENT DISTRESS. 700ML CLEAR YELLOW URINE NOTED, URINE STRAINED NO STONES OBSERVED. PT BACK INTO BED. NO APAPRENT DISTRESS NOTED. CALL LIGHT WITHIN REACH. WILL CONTINUE TO MONITOR.
--- NOTE | 2021-01-28 03:33 | NUR ---
PT RESTING IN BED WITH EYES CLOSED. NO APPARENT DISTRESS NOTED. RESPIRATIONS EVEN AND UNLABORED. CALL LIGHT WITHIN REACH. WILL CONTINUE TO MONITOR.
[2021-01-28 04:34] VITALS: BP 150/81
--- NOTE | 2021-01-28 04:35 | NUR ---
SENIOR PRODUCT MANAGER IN ROOM TO OBTAIN LABS AT THIS TIME.
[2021-01-28 06:19] LABS: HEMATOCRIT 39.7 % (37.0-47.0); HEMOGLOBIN 12.9 g/dl (12.0-16.0); MEAN CELL VOLUME 91.1 fL CALC (80.0-100.0); MEAN CORPUSCULAR HGB 29.6 pG CALC (26.0-32.0); MEAN CORPUSCULAR HGB CONC 32.5 g/dL CAL (32.0-36.0); RED BLOOD COUNT 4.36 mill/uL (4.20-5.60); RED CELL DISTRI WIDTH 12.9 % (11.5-15.5)
[2021-01-28 06:37] LABS: ANION GAP 13 (6-22 (CALC)); BUN 10 mg/dL (8-23); BUN/CREATININE RATIO 12 (12-20 (CALC)); CARBON DIOXIDE 24 mmol/l (22-30); CHLORIDE 106 mmol/l (95-108); CREATININE 0.8 mg/dL (0.5-1.0); GFR > 60 ML/MIN (>=60 (CALC)); GFR FOR AFR.AMER. > 60 ML/MIN (>=60 (CALC)); POTASSIUM 4.1 mmol/l (3.5-5.1); SODIUM 138 mmol/l (137-146)
--- NOTE | 2021-01-28 07:00 | NUR ---
PT REPORT RECEIVED FROM NIGHT NURSEELISABET
--- NOTE | 2021-01-28 08:00 | NUR ---
PT WAS FOUND RESTING IN BED IN SEMI-ROME'S POSITION;PT IS A&OX3;VS AND ASSESSMENT WERE COMPLETED;HEART SOUNDS ARE REGULAR IN RATE AND RHYTHM;TELE IS IN PLACE;LUNG SOUNDS ARE CLEAR;RESPIRATIONS ARE EVEN AND UNLABORED ON RA;#20G IV IN LAC IS RUNNING NS@10ML/HR;IV SITE IS PATENT AND APPEARS FREE OF COMPLICATIONS AT THIS TIME;PT ABDOMEN IS SOFT AND BOWEL SOUNDS ARE ACTIVE IN ALL QUADRANTS;PULSES ARE STRONG IN ALL EXTREMETIES;SAFETY PRECAUTIONS IN PLACE;CALL LIGHT WITHIN REACH;PT ENCOURAGED TO CALL WITH ANY NEEDS OR CONCERNS;BED IN LOWEST POSITION;WILL CONTINUE TO MONITOR.
[2021-01-28 08:25] VITALS: BP 166/82
[2021-01-28 10:10] LABS: INTERNATIONAL NORMALIZED RATIO 2.4 RATIO (0.7-1.3); PROTHROMBIN TIME 24.3 SECONDS (9.0-12.5)
--- NOTE | 2021-01-28 10:24 | NUR ---
GAVE 0.25MG OF XANAX AT THIS TIME. PATIENT IS WEEPY AND STATED SHE IS STRESSED. WILL CONTINUE TO MONITOR.
[2021-01-28 11:37] VITALS: BP 171/80
--- NOTE | 2021-01-28 12:00 | NUR ---
PT WAS FOUND RESTING IN BEDSIDE CHAIR EATING LUNCH;TELE IS IN PLACE;PT DENIES ANY PAIN,DISCOMFORT OR NEEDS AT THIS TIME;SAFETY PRECAUTIONS IN PLACE;CALL LIGHT WITHIN REACH;WILL CONTINUE TO MONITOR.
[2021-01-28 15:30] VITALS: BP 155/62
--- NOTE | 2021-01-28 16:00 | NUR ---
PT WAS FOUND RESTING IN BED IN SEMI-ROME'S POSITION WATCHING TV;PT IS REQUESTING DC TODAY;PHYSICIAN AWARE;TELE REMOVED;IV REMOVED WITHOUT COMPLICATIONS AND CATHETER INTACT;SAFETY PRECAUTIONS IN PLACE;WILL CONTINUE TO MONITOR UNTIL PT DC.
[2021-01-28] MEDS ORDERED: OMNICEF300 MG PO (16:43)
[2021-01-28] MEDS ORDERED: LORTAB 7.57.5 MG PO (16:44)
--- NOTE | 2021-01-28 18:15 | NUR ---
Discharge instructions given. Patient verbalizes understanding of same. Discharged in stable condition via .Wheelchair to Home with family. All belongings sent with pt. DISCHARGE PACKET WAS GIVEN TO PT;DC INSTRUCTIONS WERE EXPLAINED TO PT ALONG WITH NEW MEDICATIONS;PT EXPRESSED UNDERSTANDING AND HAD NO FURTHER QUESTIONS FOR ME;SIGNATURE WAS OBTAINED;COPY OF ALL MEDICATIONS GIVEN TODAY WERE PROVIDED AT PT REQUEST;TELE WAS REMOVED;IV WAS REMOVED WITH NO COMPLICATIONS AND CATHETER INTACT;PT WILL BE TRANSPORTED HOME WITH SON PT WAS TRANSPORTED TO [facility] IN STABLE CONDITION VIA ACCOMPANIED BY STAFF;ALL PT BELONGINGS WERE SENT WITH PT;PT WILL BE TRANSPORTED HOME WITH SON;
== END 2021-01-28 18:15 | disposition home or self-care (01) | DRG 660 ==
LOC: ED 16:49 → ED-I 18:26 → ED 18:50 → MS2 18:51
PROVIDERS: Emergency Medicine; Nurse Practitioner; ADMIT Internal Medicine; ATTEND Internal Medicine
PROC: 0T768DZ Dilation of Right Ureter with Intraluminal Device, Via Natural or Artificial Opening Endoscopic (ICD-10-PCS; principal; 2021-01-25)
PROC: BT1D1ZZ Fluoroscopy of Right Kidney, Ureter and Bladder using Low Osmolar Contrast (ICD-10-PCS; 2021-01-25)
DX: N13.6 Pyonephrosis (principal); D68.59 Other primary thrombophilia; I10 Essential (primary) hypertension; E78.5 Hyperlipidemia, unspecified; B96.20 Unspecified Escherichia coli [E. coli] as the cause of diseases classified elsewhere; R79.1 Abnormal coagulation profile; T36.1X5A Adverse effect of cephalosporins and other beta-lactam antibiotics, initial encounter; Z86.718 Personal history of other venous thrombosis and embolism; Z79.01 Long term (current) use of anticoagulants; Z79.02 Long term (current) use of antithrombotics/antiplatelets; Z20.822 Contact with and (suspected) exposure to COVID-19
CPT/HCPCS: C1769; G0378; Q9967

== ENCOUNTER 2021-02-08 06:42 | Day surgery (SDC) | payer MEDICARE ==
[~2021-02-08 06:42] MED LIST changes: +LORTAB 7.57.5 MG PO; +OMNICEF300 MG PO
[2021-02-08 07:28] LABS: HEMATOCRIT 42.9 % (37.0-47.0); HEMOGLOBIN 13.8 g/dl (12.0-16.0); IMMATURE GRANULOCYTES 0.4 % (0.0-5.0); MEAN CELL VOLUME 90.5 fL CALC (80.0-100.0); MEAN CORPUSCULAR HGB 29.1 pG CALC (26.0-32.0); MEAN CORPUSCULAR HGB CONC 32.2 g/dL CAL (32.0-36.0); NEUT# 4.54 thou/uL (2.00-7.15); RED BLOOD COUNT 4.74 mill/uL (4.20-5.60)
[2021-02-08 07:53] LABS: ACT PARTIAL THROMBO TIME 25.4 SECONDS (20.0-32.5); INTERNATIONAL NORMALIZED RATIO 1.3 RATIO (0.7-1.3); PROTHROMBIN TIME 13.6 SECONDS (9.0-12.5)
[2021-02-08 10:09] VITALS: BP 158/77
== END 2021-02-08 10:47 | disposition home or self-care (01) ==
LOC: ORM 06:42
PROVIDERS: ATTEND Urology
PROC: 0TC68ZZ Extirpation of Matter from Right Ureter, Via Natural or Artificial Opening Endoscopic (ICD-10-PCS; principal; 2021-02-08)
PROC: 0TP98DZ Removal of Intraluminal Device from Ureter, Via Natural or Artificial Opening Endoscopic (ICD-10-PCS; 2021-02-08)
PROC: 0T768DZ Dilation of Right Ureter with Intraluminal Device, Via Natural or Artificial Opening Endoscopic (ICD-10-PCS; 2021-02-08)
PROC: BT1D1ZZ Fluoroscopy of Right Kidney, Ureter and Bladder using Low Osmolar Contrast (ICD-10-PCS; 2021-02-08)
DX: N20.1 Calculus of ureter (principal); I10 Essential (primary) hypertension; E78.5 Hyperlipidemia, unspecified; D68.59 Other primary thrombophilia; Z87.442 Personal history of urinary calculi; Z86.718 Personal history of other venous thrombosis and embolism; Z79.01 Long term (current) use of anticoagulants; Z79.02 Long term (current) use of antithrombotics/antiplatelets
CPT/HCPCS: J0131; Q9967

== ENCOUNTER 2022-07-11 10:51 | Emergency (ER) | payer MEDICARE ==
[~2022-07-11] VITALS: Ht 165.1 cm; Wt 81.0 kg
[2022-07-11] MEDS ORDERED: GABAPENTIN100 MG PO (11:42)
[2022-07-11] MEDS ORDERED: TRAMADOL HCL50 MG PO (11:42)
[2022-07-11 13:48] VITALS: BP 161/99
== END 2022-07-11 13:48 | disposition home or self-care (01) ==
LOC: ED 10:51
DX: U07.1 COVID-19 (principal); J02.8 Acute pharyngitis due to other specified organisms; I10 Essential (primary) hypertension; E78.5 Hyperlipidemia, unspecified; Z86.718 Personal history of other venous thrombosis and embolism

== ENCOUNTER 2023-09-03 13:33 | Emergency (ER) | payer MEDICARE ==
[~2023-09-03] VITALS: Ht 165.1 cm; Wt 80.0 kg
[2023-09-03] VITALS (14 sets, daily range): BP systolic 86–140; BP diastolic 40–105
[~2023-09-03 13:33] MED LIST changes: +GABAPENTIN100 MG PO; +TRAMADOL HCL50 MG PO
[2023-09-03 15:03] LABS: URINE BLOOD DIPSTICK Large (NEGATIVE); URINE GLUCOSE - DIPSTICK Negative (NEGATIVE); URINE KETONE 15 mg/dL (NEGATIVE); URINE PH 6.5 (4.5-8.0); URINE PROTEIN - DIPSTICK 100 mg/dL (NEG-TRACE); URINE UROBILINOGEN - DIPSTICK 0.2 E.U./dL (0.2)
[2023-09-03 15:04] LABS: URINE COLOR Yellow; URINE LEUK ESTERASE Small (NEGATIVE); URINE NITRITE - DIPSTICK Positive (Negative)
[2023-09-03 15:05] LABS: URINE BACTERIA MANY hpf; URINE RBC 25-50 RBC/hpf (0-5); URINE WBC 20-50 WBC/hpf (0-5)
[2023-09-03 15:06] LABS: BASO% 0.2 % (0-3); HEMATOCRIT 44.6 % (37.0-47.0); HEMOGLOBIN 14.2 g/dl (12.0-16.0); IMMATURE GRANULOCYTES 0.5 % (0.0-5.0); LYMPH% 1.9 % (15-41); MEAN CORPUSCULAR HGB 28.3 pG CALC (26.0-32.0); MEAN CORPUSCULAR HGB CONC 31.8 g/dL CAL (32.0-36.0); MONO% 1.4 % (2-13); NEUT# 17.01 thou/uL (2.00-7.15); RED BLOOD COUNT 5.01 mill/uL (4.20-5.60); RED CELL DISTRI WIDTH 13.8 % (11.5-15.5)
[2023-09-03 15:09] LABS: ALBUMIN 4.8 g/dL (3.2-5.0); CREATININE 1.4 mg/dL (0.5-1.0); POTASSIUM 3.8 mmol/l (3.5-5.1); TOTAL PROTEIN 7.6 g/dL (6.3-8.2)
[2023-09-03 15:15] LABS: BILIRUBIN, TOTAL 1.1 mg/dL (0.02-1.3)
[2023-09-03] MEDS ORDERED: GABAPENTIN100 MG PO (17:20)
[2023-09-03 17:44] LABS: PROTHROMBIN TIME 27.6 SECONDS (9.0-12.5)
== END 2023-09-03 22:17 ==
LOC: ED 13:33
PROVIDERS: Family Medicine
DX: A41.9 Sepsis, unspecified organism (principal); R65.20 Severe sepsis without septic shock; N20.1 Calculus of ureter; N39.0 Urinary tract infection, site not specified; B96.89 Other specified bacterial agents as the cause of diseases classified elsewhere; I10 Essential (primary) hypertension; E78.5 Hyperlipidemia, unspecified; Z86.718 Personal history of other venous thrombosis and embolism; Z20.822 Contact with and (suspected) exposure to COVID-19

== ENCOUNTER 2024-08-25 11:14 | Emergency (ER) | payer MEDICARE ==
[~2024-08-25] VITALS: Ht 165.1 cm; Wt 68.0 kg
[2024-08-25] VITALS (11 sets, daily range): BP systolic 147–189; BP diastolic 82–109
[~2024-08-25 11:14] MED LIST changes: -COUMADIN5 MG PO; +WARFARIN SODIU2.5 M1 PO
[2024-08-25 11:57] LABS: BASO% 1.2 % (0-3); EOS% 3.5 % (0-8); HEMATOCRIT 42.5 % (37.0-47.0); HEMOGLOBIN 13.3 g/dl (12.0-16.0); IMMATURE GRANULOCYTES 0.2 % (0.0-5.0); LYMPH% 25.5 % (15-41); MEAN CELL VOLUME 91.4 fL CALC (80.0-100.0); MEAN CORPUSCULAR HGB 28.6 pG CALC (26.0-32.0); MEAN CORPUSCULAR HGB CONC 31.3 g/dL CAL (32.0-36.0); MONO% 7.4 % (2-13); NEUT# 3.22 thou/uL (2.00-7.15); NEUT% 62.2 % (42-76); RED BLOOD COUNT 4.65 mill/uL (4.20-5.60); RED CELL DISTRI WIDTH 13.5 % (11.5-15.5)
[2024-08-25 12:20] LABS: ALBUMIN 4.8 g/dL (3.2-5.0); BILIRUBIN, TOTAL 0.8 mg/dL (0.02-1.3); POTASSIUM 4.2 mmol/l (3.5-5.1); TOTAL PROTEIN 7.6 g/dL (6.3-8.2)
[2024-08-25] MEDS ORDERED: LISINOPRIL5 MG PO (13:22)
[2024-08-25] MEDS ORDERED: LISINOPRIL 5 MG/TAB PO ONE (13:25)
[2024-08-25] MEDS ORDERED: HYDROCO/APAP1 T10 PO (20:18)
[2024-08-26] MEDS ORDERED: AMLODIPINE BESYL5 MG PO (11:35)
[2024-08-26] MEDS ORDERED: KEFLEX500 MG PO (11:40)
== END 2024-08-25 14:05 | disposition home or self-care (01) ==
LOC: ED 11:14
PROVIDERS: Family Medicine
DX: I10 Essential (primary) hypertension (principal); E78.5 Hyperlipidemia, unspecified; Z86.718 Personal history of other venous thrombosis and embolism

== ENCOUNTER 2024-08-25 19:35 | Observation (INO) | payer MEDICARE ==
[~2024-08-25] VITALS: Ht 162.6 cm; Wt 68.1 kg
[2024-08-25] VITALS (15 sets, daily range): BP systolic 147–206; BP diastolic 73–113
[~2024-08-25 19:35] MED LIST changes: +LISINOPRIL5 MG PO
[2024-08-25] MEDS ORDERED: ENALAPRILAT 1.25 MG/ML 1ML IV ONE ×2 (19:55→20:10)
[2024-08-25] MEDS ORDERED: HYDROCO/APAP1 T10 PO (20:18)
[2024-08-25 20:20] LABS: BASO% 0.6 % (0-3); EOS% 1.2 % (0-8); HEMATOCRIT 42.7 % (37.0-47.0); HEMOGLOBIN 13.3 g/dl (12.0-16.0); IMMATURE GRANULOCYTES 0.1 % (0.0-5.0); MEAN CELL VOLUME 89.9 fL CALC (80.0-100.0); MEAN CORPUSCULAR HGB CONC 31.1 g/dL CAL (32.0-36.0); MONO% 7.1 % (2-13); NEUT# 5.21 thou/uL (2.00-7.15); RED BLOOD COUNT 4.75 mill/uL (4.20-5.60); RED CELL DISTRI WIDTH 13.3 % (11.5-15.5)
[2024-08-25 20:32] LABS: ALBUMIN 4.8 g/dL (3.2-5.0); ALKALINE PHOSPHATASE 71 u/l (38-126); ANION GAP 14 (6-22 (CALC)); BILIRUBIN, TOTAL 0.8 mg/dL (0.02-1.3); BUN 11 mg/dL (8-23); BUN/CREATININE RATIO 13 (12-20 (CALC)); CARBON DIOXIDE 26 mmol/l (22-30); CHLORIDE 104 mmol/l (95-108); CREATININE 0.9 mg/dL (0.5-1.0); ESTIMATED GFR 66 ML/MIN (>=90 (CALC)); POTASSIUM 3.7 mmol/l (3.5-5.1); SGOT/AST 28 u/l (9-36); SODIUM 140 mmol/l (137-146); TOTAL PROTEIN 7.7 g/dL (6.3-8.2)
[2024-08-25 20:42] LABS: INTERNATIONAL NORMALIZED RATIO 1.2 RATIO (0.7-1.3)
[2024-08-25 20:43] LABS: PROTHROMBIN TIME 12.9 SECONDS (9.0-12.5)
[2024-08-25 21:51] LABS: URINE BILIRUBIN - DIPSTICK Negative (NEGATIVE); URINE BLOOD DIPSTICK Negative (NEGATIVE); URINE GLUCOSE - DIPSTICK Negative (NEGATIVE); URINE KETONE Negative (NEGATIVE); URINE PROTEIN - DIPSTICK Negative (NEG-TRACE); URINE UROBILINOGEN - DIPSTICK 0.2 E.U./dL (0.2)
[2024-08-25 21:56] LABS: URINE COLOR Yellow; URINE LEUK ESTERASE Small (NEGATIVE); URINE NITRITE - DIPSTICK Positive (Negative)
[2024-08-25] MEDS ORDERED: MAGNESIUM HYDROXIDE 30 ML UDC PO PRN (22:00)
[2024-08-25] MEDS ORDERED: ACETAMINOPHEN 325 MG/TAB PO PRN (22:00)
[2024-08-25] MEDS ORDERED: SODIUM CHLORIDE 0.9% 1,000 ML IV PRN (22:00)
[2024-08-25] MEDS ORDERED: amLODIPine BESYLATE 5 MG/TAB PO SCH (22:00)
[2024-08-25 22:01] LABS: URINE BACTERIA MANY hpf
[2024-08-25 22:02] LABS: URINE SQUAMOUS EPITHELIAL CELL FEW EPI/hpf (0-FEW)
[2024-08-26] VITALS (17 sets, daily range): BP systolic 113–172; BP diastolic 57–92
[2024-08-26] MEDS ORDERED: QUEtiapine FUMERATE 25 MG/TAB PO SCH ×2 (02:45→21:00)
[2024-08-26 08:50] LABS: INTERNATIONAL NORMALIZED RATIO 1.2 RATIO (0.7-1.3)
[2024-08-26] MEDS ORDERED: LISINOPRIL 10 MG/TAB PO SCH (09:00)
[2024-08-26] MEDS ORDERED: PANTOPRAZOLE SODIUM Sesquihydr 40 MG/TAB PO SCH (09:00)
[2024-08-26 09:46] LABS: PROTHROMBIN TIME 12.7 SECONDS (9.0-12.5)
[2024-08-26] MEDS ORDERED: AMLODIPINE BESYL5 MG PO (11:35)
[2024-08-26] MEDS ORDERED: KEFLEX500 MG PO (11:40)
[2024-08-26] MEDS ORDERED: warFARIN SODIUM 5 MG/TAB PO SCH (14:00)
[2024-08-26] MEDS ORDERED: GABAPENTIN 100 MG/CAP PO SCH (21:00)
[2024-08-26] MEDS ORDERED: ENOXAPARIN SODIUM 40 MG/0.4 ML SYR SC SCH (21:00)
== END 2024-08-26 13:45 | disposition home or self-care (01) ==
LOC: ED 19:35 → ED-I 21:25 → ED 21:29 → ICU 21:30
PROVIDERS: Emergency Medicine; ADMIT Internal Medicine; ATTEND Internal Medicine
DX: I16.0 Hypertensive urgency (principal); I10 Essential (primary) hypertension; N39.0 Urinary tract infection, site not specified; B96.20 Unspecified Escherichia coli [E. coli] as the cause of diseases classified elsewhere; D68.59 Other primary thrombophilia; E78.5 Hyperlipidemia, unspecified; Z86.718 Personal history of other venous thrombosis and embolism; Z79.01 Long term (current) use of anticoagulants
CPT/HCPCS: J0696